=== PATIENT | male | born 2000 | race Caucasian/White ===

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

== ENCOUNTER 2024-12-13 09:15 | Emergency (ER) | payer OTHER ==
[2024-12-13 09:21] VITALS: RESP 20; BMI 27.3
[2024-12-13] MEDS ORDERED: ONDANSETRON 4 MG/2 ML VIAL ONE (09:56)
[2024-12-13] MEDS ORDERED: FAMOTIDINE 20 MG/50 ML IVPB 20 MG/50 ML MG IVPB ONE (09:56)
[2024-12-13] MEDS ORDERED: KETOROLAC TROMETHAMINE 15 MG/ML VIAL ONE (09:56)
[2024-12-13] MEDS ORDERED: ACETAMINOPHEN INJECTION 100 ML ONE (09:56)
[2024-12-13 10:09] LABS: ABSOLUTE IMMATURE GRANULOCYTES 0.03 x10^3/uL (0.0-0.031); BASOPHILS # 0.04 x10^3/uL (0.01-0.08); EOSINOPHIL % 0.6 % (0.8-7.0); EOSINOPHILS # 0.05 x10^3/uL (0.04-0.54); MCHC 31.7 g/dl (32.3-36.5); MEAN CELL VOLUME 87.3 fl (79.0-92.2); MEAN PLT VOLUME 9.7 fl (9.4-12.4); MONOCYTE # 0.48 x10^3/uL (0.30-0.82); MONOCYTE % 6.1 % (5.3-12.2); RDW 11.8 % (11.9-15.3)
[2024-12-13] MEDS: ONDANSETRON 4 MG/2 ML VIAL IVPB ONE (10:11)
[2024-12-13] MEDS: ACETAMINOPHEN 1000 MG/100 ML BAG IVPB ONE (10:11)
[2024-12-13] MEDS: SODIUM CHLORIDE 0.9% 500 ML INFUS.BAG IV ONE (10:11)
[2024-12-13] MEDS: FAMOTIDINE 20 MG/50 ML IVPB 20 MG/50 ML MG IVPB ONE (10:11)
[2024-12-13] MEDS: KETOROLAC TROMETHAMINE 15 MG/ML VIAL IVPUSH ONE (10:11)
[2024-12-13 10:45] LABS: GLUCOSE,RANDOM 160.0 mg/dL (74-106); TOT PROT 7.5 g/dl (6.4-8.2)
[2024-12-13 10:47] LABS: CO2 26.0 mmol/L (21-32)
[2024-12-13 10:48] LABS: ALK PHOS 88.0 U/L (40-150)
[2024-12-13 10:51] LABS: CREATININE 0.95 mg/dL (0.55-1.3); SGOT/AST 33.0 U/L (5-34); SGPT/ALT 52.0 U/L (0-55)
[2024-12-13 11:09] LABS: HIV INTERPRETATION NEGATIVE (NEGATIVE)
[2024-12-13 11:27] LABS: URINE APPEARANCE CLEAR; URINE BILIRUBIN NEGATIVE (NEGATIVE); URINE COLOR YELLOW; URINE GLUCOSE (UA) TRACE (NEGATIVE); URINE KETONE NEGATIVE (NEGATIVE)
[2024-12-13 11:28] LABS: URINE LEUK ESTERASE NEGATIVE (NEGATIVE); URINE NITRITE NEGATIVE (NEGATIVE); URINE PROTEIN TRACE (NEGATIVE); URINE UROBILINOGEN 1.0 mg/dL (0.2-1.0)
[2024-12-13 11:48] VITALS: BP 110/71; PULSE 74; TEMP 98.1
[2024-12-13 13:35] LABS: HCV DIAGNOSTIC IN-HOUSE W/RFLX NON-REACTIVE (NONREACTIVE)
== END 2024-12-13 12:01 | disposition home or self-care (01) ==
LOC: JER 09:15
PROC: 3E033GC Introduction of Other Therapeutic Substance into Peripheral Vein, Percutaneous Approach (ICD-10-PCS; principal; 2024-12-13)
PROC: 3E033NZ Introduction of Analgesics, Hypnotics, Sedatives into Peripheral Vein, Percutaneous Approach (ICD-10-PCS; 2024-12-13)
PROC: 3E0333Z Introduction of Anti-inflammatory into Peripheral Vein, Percutaneous Approach (ICD-10-PCS; 2024-12-13)
PROC: 3E033GC Introduction of Other Therapeutic Substance into Peripheral Vein, Percutaneous Approach (ICD-10-PCS; 2024-12-13)
DX: N13.2 Hydronephrosis with renal and ureteral calculous obstruction (principal); R11.2 Nausea with vomiting, unspecified; R50.9 Fever, unspecified
CPT/HCPCS: 36415; 74176-TC; 76775-TC; 80053; 81003; 83690; 85025; 86803; 87086; 87389; 96374; 96375; 99285-25